=== PATIENT | male | born 1965 | race African-American/Black ===

== ENCOUNTER 2019-10-14 15:00 | Inpatient (IN) | payer MEDICAID, OTHER ==
[~2019-10-14] VITALS: Ht 182.9 cm; Wt 112.0 kg
[~2019-10-14 15:00] MED LIST: ASPI-986 PO
[2019-10-14] MEDS ORDERED: PREDNISONE 20MG TABLET PO STA (15:41)
[2019-10-14] MEDS ORDERED: MAGNESIUM 2 G PREMIX 50 ML IV ONE (15:45)
[2019-10-14] MEDS ORDERED: ALBUTEROL 6.7GM HFA INHALER ORI ONE (15:45)
[2019-10-14] MEDS ORDERED: TERBUTALINE SULFATE 1MG/ML VIAL SUBCUT ONE (15:45)
[2019-10-14 17:05] LABS: BASOPHILS % 0.2 % (0.0-2.0); EOSINOPHILS % 0.1 % (0.0-5.0); HEMATOCRIT. 46.2 % (42.0-52.0); HEMOGLOBIN. 15.7 g/dL (14.0-18.0); LYMPHOCYTES % 9.1 % (20.0-50.0); MEAN CORPUSCULAR HEMOGLOBIN 31.3 pg (28.0-32.0); MEAN CORPUSCULAR VOLUME 92.4 fL (80.0-94.0); MEAN PLATELET VOLUME 9.3 fl (7.4-10.4); MONOCYTES % 14.5 % (2.0-8.0); NEUTROPHILS % 76.1 % (40.0-76.0); PLATELET 133 x1000/uL (130-400); RED CELL DISTRIBUTION WIDTH 13.6 % (11.6-14.6)
[2019-10-14 17:11] LABS: CHLORIDE 102 mEq/L (98-107)
[2019-10-14] MEDS ORDERED: CEFTRIAXONE 1 G PREMIX 50 ML IV SCH (19:15)
[2019-10-14] MEDS ORDERED: CEFTRIAXONE SODIUM 1 G/VIAL ONE (19:42)
[2019-10-14] MEDS: AMLODIPINE 10MG TABLET PO SCH (19:44)
[2019-10-14] MEDS: AZITHROMYCIN 500 MG TABLET PO SCH (19:44)
[2019-10-14] MEDS: ENOXAPARIN 100MG/ML SYR SUBCUT SCH (21:31)
[2019-10-14] MEDS: CEFTRIAXONE 1,000 MG in DEXTROSE 5% WATER 50 ML IV SCH (21:32)
[2019-10-14] MEDS: METHYLPREDNISOLONE SOD SUCC 40 MG/ML VIAL IV SCH (22:02)
[2019-10-14] MEDS ORDERED: MORPHINE SULFATE 2 MG/ML CPJ (NOT FOR IM USE) IV PRN (22:31)
[2019-10-14] MEDS ORDERED: MORPHINE SULFATE 2 MG/ML CPJ (NOT FOR IM USE) IV ONE (22:35)
[2019-10-14 23:22] VITALS: BP 121/85
[2019-10-15] MEDS: ALBUTEROL 6.7GM HFA INHALER ORI SCH ×5 (02:20→21:18)
[2019-10-15] MEDS: METHYLPREDNISOLONE SOD SUCC 40 MG/ML VIAL IV SCH ×2 (02:56→13:27)
[2019-10-15 03:40] LABS: PHENCYCLIDINE URINE SCREEN PRESUMTIVE POSITIVE (NEGATIVE)
[2019-10-15 03:42] LABS: *AMPHETAMINES SCREEN URINE PRESUMTIVE POSITIVE (NEGATIVE); *BARBITURATES SCREEN URINE NEGATIVE (NEGATIVE); *BENZODIAZEPINES SCREEN URINE NEGATIVE (NEGATIVE); *COCAINE SCREEN URINE NEGATIVE (NEGATIVE); CANNABINOID URINE SCREEN NEGATIVE (NEGATIVE); METHADONE URINE SCREEN NEGATIVE (NEGATIVE); OPIATES URINE SCREEN PRESUMTIVE POSITIVE (NEGATIVE)
[2019-10-15 04:00] VITALS: BP 152/95
[2019-10-15] MEDS ORDERED: IOHEXOL-350 100 ML BOTTLE ONE (06:15)
[2019-10-15 06:20] LABS: INR 1.2; PROTHROMBIN TIME 12.5 sec (9.6-11.0)
[2019-10-15] MEDS: ENOXAPARIN 100MG/ML SYR SUBCUT SCH ×2 (06:36→19:14)
[2019-10-15 08:00] VITALS: BP 127/83
[2019-10-15] MEDS ORDERED: TRAMADOL 50MG TABLET PO PRN (08:30)
[2019-10-15] MEDS ORDERED: FUROSEMIDE 20MG/2ML VIAL IVP SCH (08:30)
[2019-10-15] MEDS ORDERED: KETOROLAC 30MG/ML VIAL IV PRN (08:30)
[2019-10-15] MEDS: AZITHROMYCIN 500 MG TABLET PO SCH (10:28)
[2019-10-15] MEDS: AMLODIPINE 10MG TABLET PO SCH (10:28)
[2019-10-15 12:00] VITALS: BP 123/60
[2019-10-15 16:00] VITALS: BP 130/72
[2019-10-15] MEDS: MONTELUKAST SODIUM 10MG TABLET PO SCH (18:28)
[2019-10-15] MEDS: CEFTRIAXONE 1,000 MG in DEXTROSE 5% WATER 50 ML IV SCH (19:13)
[2019-10-15 20:00] VITALS: BP 140/86
[2019-10-15] MEDS ORDERED: OMEPRAZOLE 20MG CAPSULE EXTENDED RELEASE PO SCH (21:00)
[2019-10-16 00:05] VITALS: BP 135/81
[2019-10-16] MEDS: ALBUTEROL 6.7GM HFA INHALER ORI SCH (00:57)
[2019-10-16 04:00] VITALS: BP 122/81
[2019-10-16 06:33] LABS: CHLORIDE 102 mEq/L (98-107)
[2019-10-16] MEDS: ENOXAPARIN 100MG/ML SYR SUBCUT SCH (06:39)
[2019-10-16 06:48] LABS: HEMATOCRIT. 40.3 % (42.0-52.0); HEMOGLOBIN. 13.4 g/dL (14.0-18.0); MEAN CORPUSCULAR HEMOGLOBIN 30.6 pg (28.0-32.0); MEAN CORPUSCULAR VOLUME 92.2 fL (80.0-94.0); PLATELET 165 x1000/uL (130-400); RED BLOOD CELL COUNT 4.37 mill/uL (4.7-6.1); RED CELL DISTRIBUTION WIDTH 13.7 % (11.6-14.6)
[2019-10-16 08:00] VITALS: BP_SYST 129; BP_SYST 140; BP_DIAS 82; BP_DIAS 89
[2019-10-16] MEDS: AZITHROMYCIN 500 MG TABLET PO SCH (11:22)
[2019-10-16] MEDS: PREDNISONE 20MG TABLET PO SCH (11:22)
[2019-10-16] MEDS: AMLODIPINE 10MG TABLET PO SCH (11:22)
[2019-10-16 12:00] VITALS: BP_SYST 128; BP_SYST 157; BP_DIAS 84; BP_DIAS 96
[2019-10-16] MEDS ORDERED: IPRATROPIUM/ALBUTEROL 0.5-3(2.5)MG/3ML NEB HHN PRN (14:45)
[2019-10-16 15:33] LABS: PLATELET ESTIMATE NORMAL
[2019-10-16 16:00] VITALS: BP 125/81
[2019-10-16] MEDS: MONTELUKAST SODIUM 10MG TABLET PO SCH (17:40)
[2019-10-16 20:00] VITALS: BP 120/80
[2019-10-16] MEDS: ENOXAPARIN 120MG/0.8ML SYR SUBCUT SCH (20:15)
[2019-10-16] MEDS: CEFTRIAXONE 1,000 MG in DEXTROSE 5% WATER 50 ML IV SCH (20:15)
[2019-10-16] MEDS: FAMOTIDINE 20MG TABLET PO SCH (20:15)
[2019-10-16] MEDS: BENZONATATE 100MG CAPSULE PO PRN (20:15)
[2019-10-16] MEDS: APIXABAN 5 MG TABLET PO SCH (21:52)
[2019-10-17] VITALS: BP 122/78
[2019-10-17 04:00] VITALS: BP 124/76
[2019-10-17 08:00] VITALS: BP 113/76
[2019-10-17] MEDS: APIXABAN 5 MG TABLET PO SCH ×2 (08:19→16:06)
[2019-10-17] MEDS: FAMOTIDINE 20MG TABLET PO SCH ×2 (08:20→20:44)
[2019-10-17] MEDS: PREDNISONE 20MG TABLET PO SCH (08:20)
[2019-10-17] MEDS: AZITHROMYCIN 500 MG TABLET PO SCH (08:20)
[2019-10-17] MEDS: AMLODIPINE 10MG TABLET PO SCH (08:20)
[2019-10-17] MEDS: ENOXAPARIN 120MG/0.8ML SYR SUBCUT SCH (08:21)
[2019-10-17] MEDS ORDERED: FUROSEMIDE 40MG/4ML VIAL IVP NR (11:30)
[2019-10-17 12:00] VITALS: BP 116/78
[2019-10-17 16:00] VITALS: BP 119/82
[2019-10-17] MEDS: MONTELUKAST SODIUM 10MG TABLET PO SCH (16:06)
[2019-10-17 20:00] VITALS: BP 120/78
[2019-10-17] MEDS: CEFTRIAXONE 1,000 MG in DEXTROSE 5% WATER 50 ML IV SCH (20:43)
[2019-10-17] MEDS: BENZONATATE 100MG CAPSULE PO PRN (20:46)
[2019-10-18] VITALS: BP 119/77
[2019-10-18 03:53] VITALS: BP 151/84
[2019-10-18 08:00] VITALS: BP 107/71
[2019-10-18] MEDS: FAMOTIDINE 20MG TABLET PO SCH (08:24)
[2019-10-18] MEDS: PREDNISONE 20MG TABLET PO SCH (08:24)
[2019-10-18] MEDS: AZITHROMYCIN 500 MG TABLET PO SCH (08:24)
[2019-10-18] MEDS: BENZONATATE 100MG CAPSULE PO PRN (08:24)
[2019-10-18] MEDS: AMLODIPINE 10MG TABLET PO SCH (08:24)
[2019-10-18] MEDS: APIXABAN 5 MG TABLET PO SCH (08:24)
[2019-10-18 13:09] VITALS: BP 107/71
[2019-10-24] MEDS ORDERED: APIXABAN 5 MG TABLET PO SCH (09:00)
== END 2019-10-18 13:52 | disposition home or self-care (01) | DRG 720 ==
LOC: ER 15:00 → 7WST 18:48 → CANRESERV 20:38 → ENRESERV 20:38 → CANBEDREQ 10-15 03:17 → 6WST 10-16 01:30
PROVIDERS: ADMIT Internal Medicine; ATTEND Internal Medicine
DX: A41.9 Sepsis, unspecified organism (principal); J96.01 Acute respiratory failure with hypoxia; I26.99 Other pulmonary embolism without acute cor pulmonale; J68.0 Bronchitis and pneumonitis due to chemicals, gases, fumes and vapors; E66.9 Obesity, unspecified; E87.1 Hypo-osmolality and hyponatremia; I10 Essential (primary) hypertension; F17.210 Nicotine dependence, cigarettes, uncomplicated; Z79.2 Long term (current) use of antibiotics; Z20.828 Contact with and (suspected) exposure to other viral communicable diseases; F16.10 Hallucinogen abuse, uncomplicated; F15.10 Other stimulant abuse, uncomplicated; I50.40 Unspecified combined systolic (congestive) and diastolic (congestive) heart failure; I25.10 Atherosclerotic heart disease of native coronary artery without angina pectoris; Z95.5 Presence of coronary angioplasty implant and graft; Z68.33 Body mass index [BMI] 33.0-33.9, adult; Z79.899 Other long term (current) drug therapy; Z71.3 Dietary counseling and surveillance; Z71.6 Tobacco abuse counseling
CPT/HCPCS: 36415; 71045; 71275; 80048; 80053; 80305; 83880; 84484; 85025; 85379; 93005; 93306; 94640; 96365; 99285; J0696; J1650; J1885; J1940; J2270; J2920; J3105; J3475; J7060; J7512; Q9967; U0003-CS